=== PATIENT | female | born 1965 | race American Indian/Alaskan Native ===

== ENCOUNTER 2017-12-18 16:08 | Emergency (ER) | payer OTHER ==
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
[2017-12-18 22:15] VITALS: BP 144/93
[2017-12-18] MEDS ORDERED: NORCO 7.5/325 PO ONE (22:16)
[2017-12-18] MEDS ORDERED: FLEXERIL PO ONE (22:17)
== END 2017-12-18 23:08 | disposition home or self-care (01) ==
LOC: ED 16:08
DX: G44.319 Acute post-traumatic headache, not intractable (principal); M54.5 Low back pain; M54.6 Pain in thoracic spine; M79.1 Myalgia